=== PATIENT | female | born 1940 | race Caucasian/White ===

== ENCOUNTER → 2017-01-05 | Outpatient (REF) | payer MEDICARE | LOC: M LAB REF 17:21 | PROVIDERS: ATTEND Ophthalmology | DX: L72.0 Epidermal cyst (principal); L57.0 Actinic keratosis; L91.8 Other hypertrophic disorders of the skin ==

== ENCOUNTER → 2018-04-25 | Outpatient (REF) | payer MEDICARE ==
[2018-04-25 18:30] LABS: BASO # 0.1 10^3/uL (0.0-0.2); BASO % 0.6 % (0.0-1.0); EOS # 0.2 10^3/uL (0.0-0.50); EOS % 1.2 % (0.0-3.0); HEMATOCRIT 42.6 % (36.0-47.0); HEMOGLOBIN 13.9 g/dl (12.0-15.5); IMMATURE GRANULOCYTE # 0.1 10^3/uL (0-0); IMMATURE GRANULOCYTE % 0.6 % (0-3.0); LYMPH # 2.3 10^3/uL (1.5-4.5); LYMPH % 17.2 % (24.0-44.0); MEAN CORPUSCULAR HEMOGLOBIN 31.2 pg (27.0-33.0); MEAN CORPUSCULAR HGB CONC 32.6 g/dl (32.0-36.5); MEAN CORPUSCULAR VOLUME 95.5 fl (80.0-96.0); MONO # 1.1 10^3/uL (0.0-0.8); NEUTROPHILS # 9.8 10^3/uL (1.8-7.7); NEUTROPHILS % 72.4 % (36.0-66.0); PLATELET COUNT, AUTOMATED 401 10^3/uL (150-450); RED BLOOD COUNT 4.46 10^6/uL (4.00-5.40); RED CELL DISTRIBUTION WIDTH 14.4 % (11.5-14.5); WHITE BLOOD COUNT 13.6 10^3/uL (4.0-10.0)
[2018-04-25 18:55] LABS: TOTAL 25(OH) VITAMIN D 49.4 NG/ML (30.0-100.0)
[2018-04-25 23:53] LABS: ALBUMIN 3.5 GM/DL (3.2-5.2); ALKALINE PHOSPHATASE 94 U/L (45-117); ALT/SGPT 23 U/L (12-78); AST/SGOT 22 U/L (7-37); BILIRUBIN,TOTAL 0.3 MG/DL (0.2-1.0); BLOOD UREA NITROGEN 16 MG/DL (7-18); CALCIUM LEVEL 8.7 MG/DL (8.8-10.2); CARBON DIOXIDE LEVEL 26 MEQ/L (21-32); CHLORIDE LEVEL 105 MEQ/L (98-107); CREATININE FOR GFR 0.82 MG/DL (0.55-1.30); GLOMERULAR FILTRATION RATE > 60.0 (>39); GLUCOSE, FASTING 125 MG/DL (70-100); HDL CHOLESTEROL 60 MG/DL (>40); POTASSIUM SERUM 4.2 MEQ/L (3.5-5.1); SODIUM LEVEL 139 MEQ/L (136-145); TOTAL PROTEIN 6.5 GM/DL (6.4-8.2); TRIGLYCERIDES LEVEL 59 MG/DL (<150)
[2018-04-26 00:10] LABS: ALBUMIN/GLOBULIN RATIO 1.17 (1.00-1.93); ANION GAP 8 MEQ/L (8-16)
[2018-04-26 00:53] LABS: CHOLESTEROL LEVEL 111 MG/DL (<200); LDL CHOLESTEROL 39 MG/DL (<100); NON-HDL-C 51 MG/DL
== END ==
LOC: M LAB REF 18:02
DX: E78.1 Pure hyperglyceridemia (principal); I77.9 Disorder of arteries and arterioles, unspecified; N39.3 Stress incontinence (female) (male); Z72.0 Tobacco use; I10 Essential (primary) hypertension
CPT/HCPCS: 84443

== ENCOUNTER → 2018-08-29 | Outpatient (REF) | payer MEDICARE ==
[2018-08-29 18:33] LABS: APPEARANCE, URINE CLEAR (CLEAR); BACTERIA, URINE AUTO NEGATIVE (NEGATIVE); BILIRUBIN, URINE AUTO NEGATIVE (NEGATIVE); BLOOD, URINE BLOOD 1+ (NEGATIVE); COLOR, URINE YELLOW (YELLOW); GLUCOSE, URINE (UA) AUTO NEGATIVE (NEGATIVE); KETONE, URINE AUTO NEGATIVE (NEGATIVE); LEUKOCYTE ESTERASE, URINE AUTO NEGATIVE (NEGATIVE); MUCUS, URINE SMALL (NEGATIVE); NITRITE, URINE AUTO NEGATIVE (NEGATIVE); PROTEIN, URINE AUTO 1+ mg/dL (NEGATIVE); RBC, URINE AUTO 14 /HPF (0-3); SPECIFIC GRAVITY URINE AUTO 1.013 (1.002-1.035); SQUAMOUS EPITHELIAL CELL UR AU 0 /HPF (0-6); UROBILINOGEN, URINE AUTO 0.2 mg/dL (0.0-2.0); WBC, URINE AUTO 4 /HPF (0-3)
== END ==
LOC: M LAB REF 16:51
PROVIDERS: ATTEND Obstetrics & Gynecology
DX: N39.46 Mixed incontinence (principal)

== ENCOUNTER 2018-11-17 09:49 | Day surgery (SDC) | payer MEDICARE ==
[~2018-11-17] VITALS: Ht 149.9 cm; Wt 63.0 kg
[~2018-11-17 09:49] MED LIST: ADV250INH; BIMA01SOL OU; CLOP75TA2 PO; CYCL10TA PO; DEXI60CA2; DOXA1TAB67 PO; DULO1CAP3 PO; INCR1INH INH; IRBE75TA5 PO; LR 1,000 ML IV ONE; MELO15TA28 PO; VERA24TASA PO
[2018-11-17] MEDS ORDERED: BUPIVACAINE HCL 0.25% 30 ML VIAL As Ordered ONE (10:53)
[2018-11-17] MEDS ORDERED: PROPOFOL 200 MG/20 ML VIAL As Ordered ONE (11:25)
[2018-11-17] MEDS ORDERED: ONDANSETRON 4MG/2ML VIAL (J2405) As Ordered ONE (11:25)
[2018-11-17] MEDS ORDERED: METOCLOPRAMIDE INJ 10MG/2ML VIAL (J2765) As Ordered ONE (11:25)
[2018-11-17] MEDS ORDERED: dexameTHASONE 4 MG/ML 1ML VIAL (J1100) As Ordered ONE (11:25)
[2018-11-17] MEDS ORDERED: fentaNYL 100 MCG/2 ML INJECTION (J3010) As Ordered ONE (11:25)
[2018-11-17] MEDS ORDERED: LIDOCAINE 2% INJ 100 MG/5 ML SDV (FOR ANES.) As Ordered ONE (11:25)
[2018-11-17] MEDS ORDERED: ePHEDrine SULFATE 25 MG/5 ML(5MG/ML) SYRINGE As Ordered ONE (11:44)
[2018-11-17] MEDS ORDERED: PHENYLephrine HCL 500 MCG/5 ML (100MCG/ML) SYRINGE (J2370) As Ordered ONE (11:44)
[2018-11-17] MEDS ORDERED: ONDANSETRON 4MG/2ML VIAL (J2405) IV PRN (12:45)
[2018-11-17] MEDS ORDERED: LR 1,000 ML IV SCH ×2 (12:45)
[2018-11-17] MEDS ORDERED: fentaNYL 100 MCG/2 ML INJECTION (J3010) IV PRN (12:45)
[2018-11-17] MEDS ORDERED: IBUPROFEN 400 MG TAB PO PRN (12:45)
[2018-11-17] MEDS ORDERED: NORCO, ANEXSIA 5/325MG TABLET (HYDROcodone/ACETAMINOPHEN) PO PRN (12:45)
[2018-11-17] MEDS ORDERED: IPRATROPIUM 0.5MG/ALBUTEROL 2.5MG INH SOL UD 3ML (DUONEB)(J7620) As Ordered ONE (13:06)
[2018-11-17] MEDS ORDERED: IPRATROPIUM 0.5MG/ALBUTEROL 2.5MG INH SOL UD 3ML (DUONEB)(J7620) INH ONE (13:30)
--- NOTE | 2018-11-17 14:11 | RO ---
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 PROCEDURE: Cystourethroscopy with Macroplastique periurethral injection. SURGEON: Dr. Keys SALES ANALYTICS MANAGER: ANESTHESIA: General endotracheal anesthesia. BRIEF DESCRIPTION OF PROCEDURE AND FINDINGS: Maite was brought to the operating room. We attempted to position her but she really cannot put her legs in the stirrups due to her low back problems and so we went ahead and gave her anesthesia and then carefully positioned her again with great effort taken not to worsen any of her back problems. She was then prepped and draped. We gave her periurethral Marcaine for numbing and placed the cystoscope. We could see the bladder and a very lax urethral sphincter, but also some persistent detrusor overactivity. She is on Myrbetriq for that. She has normal ureteral orifices. Normal trigone. A little bit of a small cystocele. She did not have tremendous scarring of the bladder. She had a normal sized appearing bladder. Back into the urethra, we placed the needle to the 4 o'clock injection with some effort because we were having some trouble getting the needle to come out the front side of the curve of the 30-degree scope. After effort, it kept coming out behind the scope when we went to go to the other side. We went ahead and placed the needle periurethrally separate from the scope and had the practice assistant hold the scope steady and then injected that way, but we did get coaptation and placement of two ampules of the Macroplastique and good coaptation of an obviously initially lax sphincter. Following the procedure, the bladder was emptied again and the procedure ended. Estimated blood loss for the procedure, maybe 4 mL. Fluid replacement was Crystalloid. Complications: We had some difficulty getting the equipment to work but no complications with the patient. The patient also needed a little more anesthesia because of her low back problems, but that was certainly no operative complication. Condition and disposition: As already noted, she had some difficulty with position but we were able to work around that. The procedure was ended and she was recovering in the recovery room in good condition. It should be noted that initially she had saturations in the 80s when starting the case. We did supplement her, but this was not something that changed during the case or ended up lower than it had started, certainly a significant finding but not new for the patient.
[2018-11-17 15:25] VITALS: BP 133/63
== END 2018-11-17 15:35 | disposition home or self-care (01) ==
LOC: M SDC 09:49
PROVIDERS: ATTEND Obstetrics & Gynecology
DX: N39.46 Mixed incontinence (principal); N36.42 Intrinsic sphincter deficiency (ISD); I10 Essential (primary) hypertension; J44.9 Chronic obstructive pulmonary disease, unspecified; K21.9 Gastro-esophageal reflux disease without esophagitis; Z79.899 Other long term (current) drug therapy
CPT/HCPCS: 52327; J0690; J1100; J2370; J2405; J2765; J3010; L8606

== ENCOUNTER → 2019-02-06 | Outpatient (REF) | payer MEDICARE ==
[~2019-02-06] MED LIST changes: -LR 1,000 ML IV ONE
[2019-02-06 18:43] LABS: APPEARANCE, URINE CLEAR (CLEAR); BACTERIA, URINE AUTO 1+ (NEGATIVE); BILIRUBIN, URINE AUTO NEGATIVE (NEGATIVE); BLOOD, URINE BLOOD 1+ (NEGATIVE); COLOR, URINE YELLOW (YELLOW); GLUCOSE, URINE (UA) AUTO NEGATIVE (NEGATIVE); KETONE, URINE AUTO NEGATIVE (NEGATIVE); LEUKOCYTE ESTERASE, URINE AUTO 2+ (NEGATIVE); MUCUS, URINE SMALL (NEGATIVE); NITRITE, URINE AUTO NEGATIVE (NEGATIVE); PROTEIN, URINE AUTO NEGATIVE (NEGATIVE); RBC, URINE AUTO 5 /HPF (0-3); SPECIFIC GRAVITY URINE AUTO 1.012 (1.002-1.035); SQUAMOUS EPITHELIAL CELL UR AU 1 /HPF (0-6); UROBILINOGEN, URINE AUTO 0.2 mg/dL (0.0-2.0); WBC, URINE AUTO 16 /HPF (0-3)
== END ==
LOC: M LAB REF 16:14
PROVIDERS: ATTEND Obstetrics & Gynecology
DX: N39.46 Mixed incontinence (principal); R35.1 Nocturia; N32.81 Overactive bladder

== ENCOUNTER → 2019-05-19 | Outpatient (CLI) | payer MEDICARE ==
[~2019-05-19] MED LIST changes: -DULO1CAP3 PO; +DULO1CAP6 PO
--- NOTE | 2019-05-19 13:53 | REP ---
REASON FOR EXAM: History of COPD. COMPARISON EXAM: 11/28/2007, the latest prior. There is cardiomegaly. The interstitial markings are diffusely increased and increased in appearance compared to the prior exam. There are no patchy opacities or pleural effusions. There is no significant change in the appearance of the osseous structures. IMPRESSION: Cardiomegaly and evidence of interstitial fibrosis. Consider CT examination of the lungs if clinically relevant. There is no zo evidence of pulmonary edema. Electronically Signed by Umang Noriega DO 05/19/2019 02:07 P
== END ==
LOC: M SMT 08:58
PROVIDERS: ATTEND Internal Medicine Cardiovascular Disease
DX: J44.1 Chronic obstructive pulmonary disease with (acute) exacerbation (principal); I51.7 Cardiomegaly